=== PATIENT | male | born 1970 | race African-American/Black ===

== ENCOUNTER 2017-06-10 12:43 | Inpatient (IN) | payer OTHER ==
[~2017-06-10] VITALS: Ht 180.3 cm; Wt 127.0 kg
[~2017-06-10 12:43] MED LIST: LORTA5 PO; VIBR100C PO
[2017-06-10 12:53] VITALS: BP 139/101; TEMP 97.9; O2SAT 96
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
[2017-06-10 13:19] VITALS: RESP 18; O2SAT 99
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
[2017-06-10 14:25] LABS: BASOPHIL % 0.7 % (0.0-2.0); EOSINOPHIL % 0.1 % (0.0-4.0); HEMATOCRIT 49.1 % (39.0-51.0); HEMOGLOBIN 16.9 GM/DL (13.0-17.0); LYMPH % 13.3 % (9.0-44.0); MEAN CELL VOLUME 87.7 FL (80.0-100.0); MEAN CORPUSCULAR HEMOGLOBIN 30.1 PG (27.0-34.0); MEAN CORPUSCULAR HGB CONC 34.3 % (32.0-36.0); MONOCYTE # 0.5 TH/MM3 (0-0.9); NEUT % 79.9 % (16.0-70.0); PLATELET COUNT 193 TH/MM3 (150-450); RED CELL DISTRIBUTION WIDTH 15.2 % (11.6-17.2); WHITE BLOOD COUNT 7.5 TH/MM3 (4.0-11.0)
[2017-06-10 14:35] LABS: INTERNATIONAL NORMALIZED RATIO 1.1 RATIO; PROTHROMBIN TIME - PATIENT 11.4 SEC (9.8-11.6)
[2017-06-10 14:45] LABS: ALT (GPT) 30 U/L (12-78); AST (GOT) 32 U/L (15-37); BLOOD UREA NITROGEN 9 MG/DL (7-18); CALCIUM 8.7 MG/DL (8.5-10.1); CHLORIDE 104 MEQ/L (98-107); GLOMERULAR FILTRATION RATE 87 ML/MIN (>89); GLUCOSE,RANDOM 103 MG/DL (74-106); SODIUM (NA) 141 MEQ/L (136-145)
[2017-06-10 14:47] LABS: ALKALINE PHOSPHATASE 59 U/L (45-117); TOTAL BILIRUBIN ADULT 0.8 MG/DL (0.2-1.0); TOTAL PROTEIN 6.9 GM/DL (6.4-8.2)
[2017-06-10] MEDS ORDERED: SODIUM CHLOR 0.9% 1000 ML INJ 1,000 ML IV ONE (15:00)
[2017-06-10] MEDS ORDERED: ONDANSETRON HCL 4 MG/2 ML VIAL IV PUSH ONE (15:00)
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
[2017-06-10] MEDS ORDERED: IOHEXOL 350 MG/ML 10 ML VIAL (for RAD DIAG) IVCONTRAST ONE (15:18)
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
[2017-06-10 15:41] VITALS: BP 156/87; PULSE 113; RESP 18; O2SAT 94
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
[2017-06-10] MEDS ORDERED: MORPHINE SULFATE 2 MG/ML INJ IV PUSH ONE (16:00)
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
[2017-06-10] MEDS ORDERED: ONDANSETRON HCL 4 MG/2 ML VIAL IV PUSH PRN (16:45)
[2017-06-10] MEDS ORDERED: MISCELLANEOUS NURSING INFORMATION XX SCH (16:45)
[2017-06-10] MEDS ORDERED: CHLORHEXIDINE GLUCONATE 2 % 1 PACK (2 CLOTHS) TOP PRN (16:45)
[2017-06-10] MEDS: PCA - TOTAL MG DILAUDID DELIVERED PER SHIFT OTHER SCH ×2 (16:45→19:40)
[2017-06-10] MEDS ORDERED: NALOXONE HCL 0.4 MG/ML AMP IV PUSH PRN (16:45)
[2017-06-10] MEDS: ACETAMINOPHEN 1000 MG/100 ML 100 ML IV SCH (17:36)
[2017-06-10] MEDS: LACTATED RINGER'S 1000 ML INJ 1,000 ML IV SCH (17:38)
[2017-06-10] MEDS: GABAPENTIN 100 MG CAP PO SCH (17:39)
--- NOTE | 2017-06-10 18:27 | RADRPT ---
EXAM DATE/TIME: 06/10/2017 17:56 [facility] COMPARISON: No previous studies available for comparison. INDICATIONS : Evaluate left knee fracture. RADIATION DOSE: 14.03 CTDIvol (mGy) MEDICAL HISTORY : None SURGICAL HISTORY : None. ENCOUNTER: Initial ACUITY: 1 day PAIN SCALE: 10/10 LOCATION: Left knee TECHNIQUE: Volumetric scanning of the knee was performed. Using automated exposure control and adjustment of th e mA and/or kV according to patient size, radiation dose was kept as low as reasonably achievable to obtain optimal diagnostic quality images. DICOM format image data is available electronically for re view and comparison. FINDINGS: An exceedingly comminuted diepunch type fracture involves the lateral tibial plateau with marked depr ession and posterior downsloping of the central diepunch fracture fragment. Comminuted but minimally displaced fracturing is seen at the tibial eminence and the far lateral weig htbearing surface of the medial tibial plateau. There is an approximately 1 cm fracture fragment in t he posterior notch. Large lipohemarthrosis. [place] and distal femur are intact. CONCLUSION: 1. Markedly comminuted as well as markedly depressed/posterior downsloping diepunch type fracture of the lateral tibial plateau. 2. Comminuted by less displaced fracturing of the tibial eminence and the far lateral weightbearing s urface of the medial tibial plateau. 3. 1 cm fracture fragment in the posterior notch region. Blanco Cantrell MD on June 10, 2017 at 18:22 Board Certified Radiologist. This report was verified electronically.
[2017-06-10 18:30] VITALS: BP 150/85; PULSE 99; RESP 17; TEMP 99.3; O2SAT 95
[2017-06-10] MEDS: FAMOTIDINE 20 MG/2 ML VIAL IV PUSH SCH (19:39)
[2017-06-10] MEDS: BACITRACIN TOP OINT 15 GM TUBE TOPICAL SCH (19:40)
[2017-06-10] MEDS: MAGNESIUM HYDROXIDE SUSP 30 ML CUP PO SCH (19:40)
[2017-06-10] MEDS: DOCUSATE SODIUM 50 MG/SENNA 8.6 MG TAB PO SCH (19:40)
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
[2017-06-10] MEDS: METHOCARBAMOL 500 MG TAB PO SCH (20:33)
[2017-06-10] MEDS: LIDOCAINE HCL 5% PATCH T-DERMAL SCH (20:37)
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
[2017-06-10] MEDS ORDERED: DOCUSATE SODIUM 100 MG CAP PO SCH (21:00)
[2017-06-10] MEDS ORDERED: ceFAZolin 2 GM PREMIX 50 ML IV SCH (21:00)
[2017-06-10] MEDS: HYDROmorphone HCL PCA 6 MG/30 ML IV SCH (21:13)
[2017-06-10] MEDS ORDERED: METOPROLOL TARTRATE 25 MG TAB PO PRN (22:30)
[2017-06-10] MEDS ORDERED: SODIUM CHLORID 0.9% 500 ML IV PRN (22:30)
[2017-06-10] MEDS ORDERED: CHLORHEXIDINE GLUCONATE 2 % 1 PACK (2 CLOTHS) TOPICAL PRN (22:30)
[2017-06-10] MEDS ORDERED: POVIDONE IODINE 5% (ANTISEPSIS KIT) 4 APPLICATIONS EACH NARE PRN (22:30)
[2017-06-10] MEDS ORDERED: LACTATED RINGER'S 1000 ML IV PRN (22:30)
[2017-06-10 23:15] VITALS: BP 138/72; PULSE 106; RESP 18; TEMP 99.4; O2SAT 93
[2017-06-11] MEDS: ACETAMINOPHEN 1000 MG/100 ML 100 ML IV SCH ×3 (00:07→12:00)
[2017-06-11] MEDS: CHLORHEXIDINE GLUCONATE 2 % 1 PACK (2 CLOTHS) TOP SCH ×2 (02:02→22:52)
[2017-06-11] MEDS: LACTATED RINGER'S 1000 ML INJ 1,000 ML IV SCH ×3 (02:02→22:51)
[2017-06-11 03:25] VITALS: BP 119/77; PULSE 88; RESP 19; TEMP 98.9; O2SAT 94
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
[2017-06-11] MEDS: METHOCARBAMOL 500 MG TAB PO SCH ×3 (05:43→20:57)
[2017-06-11] MEDS: PCA - TOTAL MG DILAUDID DELIVERED PER SHIFT OTHER SCH ×3 (05:47→22:00)
[2017-06-11 06:56] LABS: AUTOMATED NEUTROPHIL # 5.6 TH/MM3 (1.8-7.7); BASOPHIL % 0.3 % (0.0-2.0); EOSINOPHIL % 0.1 % (0.0-4.0); HEMATOCRIT 49.4 % (39.0-51.0); HEMOGLOBIN 16.3 GM/DL (13.0-17.0); LYMPH % 12.7 % (9.0-44.0); LYMPHOCYTE # 0.9 TH/MM3 (1.0-4.8); MEAN CELL VOLUME 88.3 FL (80.0-100.0); MEAN CORPUSCULAR HEMOGLOBIN 29.2 PG (27.0-34.0); MEAN CORPUSCULAR HGB CONC 33.1 % (32.0-36.0); MEAN PLATELET VOLUME 8.9 FL (7.0-11.0); MONO % 7.9 % (0.0-8.0); MONOCYTE # 0.6 TH/MM3 (0-0.9); PLATELET COUNT 170 TH/MM3 (150-450); RED BLOOD COUNT 5.59 MIL/MM3 (4.50-5.90); RED CELL DISTRIBUTION WIDTH 15.6 % (11.6-17.2); WHITE BLOOD COUNT 7.1 TH/MM3 (4.0-11.0)
[2017-06-11 07:09] LABS: BICARBONATE 29.3 MEQ/L (21.0-32.0); CALCIUM 8.4 MG/DL (8.5-10.1); CREATININE 0.99 MG/DL (0.60-1.30)
[2017-06-11] MEDS ORDERED: GENTAMICIN SULFATE 80 MG/2 ML VIAL ONE (08:41)
[2017-06-11] MEDS: DOCUSATE SODIUM 50 MG/SENNA 8.6 MG TAB PO SCH ×3 (08:46→20:58)
[2017-06-11] MEDS: MAGNESIUM HYDROXIDE SUSP 30 ML CUP PO SCH ×2 (08:46→20:57)
[2017-06-11] MEDS: GABAPENTIN 100 MG CAP PO SCH ×3 (08:46→15:52)
[2017-06-11] MEDS: LIDOCAINE HCL 5% PATCH T-DERMAL SCH (08:51)
[2017-06-11] MEDS: BACITRACIN TOP OINT 15 GM TUBE TOPICAL SCH ×2 (09:00→21:00)
[2017-06-11] MEDS: FAMOTIDINE 20 MG/2 ML VIAL IV PUSH SCH ×2 (09:00→20:57)
[2017-06-11] MEDS ORDERED: fentaNYL CITRATE 250 MCG/5 ML AMP ONE (09:32)
[2017-06-11] MEDS ORDERED: ACETAMINOPHEN 1000 MG/100 ML 100 ML IV ONE (09:32)
[2017-06-11] MEDS ORDERED: ceFAZolin INJ 1,000 MG VIAL IV ONE ×2 (11:37→12:00)
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
[2017-06-11] MEDS ORDERED: ONDANSETRON HCL 4 MG/2 ML VIAL IV ONE (12:00)
[2017-06-11] MEDS ORDERED: LACTATED RINGER'S 1000 ML INJ 1,000 ML IV ONE (12:00)
[2017-06-11] MEDS ORDERED: ROCURONIUM INJ 50 MG/5 ML SYRINGE IV PUSH ONE (12:00)
[2017-06-11] MEDS ORDERED: NEOSTIGMINE 5 MG/5 ML SYRINGE IV PUSH ONE (12:00)
[2017-06-11] MEDS ORDERED: GLYCOPYRROLATE 1 MG/5 ML SYRINGE IV PUSH ONE (12:00)
[2017-06-11] MEDS ORDERED: ePHEDrine/NS 25 MG/5 ML SYRINGE IV ONE (12:00)
[2017-06-11] MEDS ORDERED: PHENYLEPH/NS 1000 MCG/10 ML SYR IV ONE (12:00)
[2017-06-11] MEDS ORDERED: LIDOCAINE HCL 1% PF 5 ML SYRINGE OTHER ONE (12:00)
[2017-06-11] MEDS ORDERED: DEXAMETHASONE SOD PHOS 4 MG/ML VIAL IV ONE (12:00)
[2017-06-11] MEDS ORDERED: PROPOFOL 200 MG/20 ML AMP IV ONE (12:00)
--- NOTE | 2017-06-11 12:46 | RADRPT ---
EXAM DATE/TIME: 06/11/2017 12:30 [facility] COMPARISON: CHEST SINGLE AP, June 11, 2017, 4:41. INDICATIONS : Left tibia open reduction internal fixation. MEDICAL HISTORY : None. SURGICAL HISTORY : None. ENCOUNTER: Initial ACUITY: 1 day PAIN SCORE: Non-responsive. LOCATION: Left tibia FINDINGS: There has been plating of the patient's tibial plateau fracture. The alignment of the fracture post p lating is excellent. The hardware is well-positioned. CONCLUSION: Good alignment of the patient's tibial plateau fracture post plating. Rubén Soto MD on June 11, 2017 at 12:44 Board Certified Radiologist. This report was verified electronically.
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
[2017-06-11] MEDS ORDERED: ONDANSETRON HCL 4 MG/2 ML VIAL IVP PRN (13:15)
[2017-06-11] MEDS ORDERED: Post-op Orders (for Pharmacy) XX ONE (13:15)
[2017-06-11] MEDS ORDERED: LACTULOSE SYRUP 20 GM/30 ML CUP PO PRN (13:15)
[2017-06-11] MEDS ORDERED: MORPHINE SULFATE 4 MG/ML INJ IV PUSH PRN (13:15)
[2017-06-11] MEDS ORDERED: ACETAMINOPHEN 325 MG TAB PO PRN (13:15)
[2017-06-11] MEDS ORDERED: POVIDONE IODINE 10% SOLN 118 ML BOTTLE TOPICAL PRN (13:15)
[2017-06-11] MEDS ORDERED: ALUMINUM/MAGNESIUM/SIMETH 30 ML CUP PO PRN (13:15)
[2017-06-11] MEDS ORDERED: SENNOSIDES 8.6 MG TAB PO PRN (13:15)
[2017-06-11] MEDS ORDERED: MAGNESIUM HYDROXIDE SUSP 30 ML CUP PO PRN (13:15)
[2017-06-11] MEDS ORDERED: BISACODYL 10 MG SUPP RECTAL PRN (13:15)
[2017-06-11] MEDS ORDERED: *RESP: ALBUTEROL 2.5 MG/3 ML NEB (PRN) PERIprocedural Use ONLY NEB ONE (13:19)
[2017-06-11] MEDS ORDERED: DO NOT ADM ANY ANTICOAGULANT DRUGS PRN (13:30)
--- NOTE | 2017-06-11 13:30 | PD.ORT.PN ---
Subjective Post Op Day #: 0 Subjective Remarks POD #0 Open reduction internal fixation left tibial plateau fracture Pt in recovery area. Objective Vitals Vital Signs Date Time Temp Pulse Resp B/P (MAP) Pulse Ox O2 Delivery O2 Flow Rate FiO2 06/11/17 05:47 16 06/11/17 03:25 98.9 88 19 119/77 (91) 94 06/10/17 23:15 99.4 106 18 138/72 (94) 93 06/10/17 21:13 18 06/10/17 18:35 06/10/17 18:30 99.3 99 17 150/85 (106) 95 06/10/17 15:41 113 18 156/87 (110) 94 Room Air I/O 06/10/17 06/10/17 06/10/17 06/11/17 06/11/17 06/11/17 07:00 15:00 23:00 07:00 15:00 23:00 Intake Total 120 ml 1700 ml Output Total 300 ml 1150 ml Balance -180 ml 550 ml Intake Oral 120 ml IV Total 1700 ml Output Urine Total 300 ml Estimated Blood Loss 150 ml Other 1000 ml # Bowel Movements 0 Result Diagram: 06/11/17 0543 06/11/17 0543 Other Results Laboratory Tests Test 06/10/17 14:02 Prothromb Time International Ratio 1.1 RATIO Prothrombin Time 11.4 SEC (9.8-11.6) Imaging Last 24 hours Impressions Tibia/Fibula X-Ray 06/11/17 0000 Signed Impressions: Service Date/Time: Sunday, June 11, 2017 12:30 - CONCLUSION: Good alignment of the patient's tibial plateau fracture post plating. Rubén Stoo MD Chest X-Ray 06/11/17 0000 Signed Impressions: Service Date/Time: Sunday, June 11, 2017 04:41 - CONCLUSION: No acute cardiopulmonary process except for some minimal left basilar atelectatic changes. Dennys Rosales MD Procedures 06/11/17 Open reduction internal fixation left tibial plateau fracture, Dr Breaux Objective Remarks LLE: Dressing dry and intact. Brace in place. Cryotherapy cuff in place.Tender to palpation with mild swelling around incision site. Range of motion not tested. Freely able to move distal digits. No calf pain. Negative Julius's sign. Good cap refill. 2+ pedal pulses. Neurovascular intact. Assessment & Plan Ortho Post Op Day #: 0 Problem List: (1) Tibial plateau fracture, left ICD Codes: S82.142A - Displaced bicondylar fracture of left tibia, initial encounter for closed fracture (2) Rib fractures ICD Codes: S22.39XA - Fracture of one rib, unspecified side, initial encounter for closed fracture Status: Acute Qualifiers: Qualified Codes: S22.42XA - Multiple fractures of ribs, left side, initial encounter for closed fracture (3) Hemothorax on left ICD Codes: J94.2 - Hemothorax Status: Acute Assessment and Plan POD #0 Open reduction internal fixation left tibial plateau fracture Progress rehab, toe touch w/b CKS on at all times. Cryotherapy Lovenox for DVT prophylaxis, ok to transition to ASA 81mg BID x 20 days when discharged home. Start daily dressing changes POD #2 Discharge planning. Possible discharge to home tomorrow from an orthopedic standpoint. F/U [address] Namita Frey,Leyla HILLIARD Jun 11, 2017 13:30
[2017-06-11] MEDS: HYDROmorphone HCL PCA 6 MG/30 ML IV SCH (13:44)
[2017-06-11] MEDS ORDERED: IBUP-232 PO (15:22)
[2017-06-11] MEDS ORDERED: METH500T3 PO (15:22)
[2017-06-11] MEDS ORDERED: SENN187 PO (15:22)
[2017-06-11] MEDS ORDERED: ASPI-183 PO (15:22)
[2017-06-11] MEDS ORDERED: MAGN30S PO (15:22)
[2017-06-11] MEDS ORDERED: LIDO1ADH4 T-DERMAL (15:22)
[2017-06-11] MEDS: ceFAZolin 2 GM PREMIX 50 ML IV SCH ×2 (15:51→22:50)
[2017-06-11 15:57] VITALS: BP 113/55; PULSE 96; RESP 17; TEMP 97.7; O2SAT 96
--- NOTE | 2017-06-11 17:51 | EKG ---
Date Performed: 06/11/2017 Time Performed: 07:38:14 PTAGE: 46 years EKG: Sinus rhythm PVC ABNORMAL ECG Compared to PREVIOUS TRACING , the PVC is new otherwise no change. PREVIOUS TRACIN11/18/2004 17.16 DOCTOR: Jim Clark Interpretating Date/Time 06/11/2017 17:50:44
[2017-06-11 20:20] VITALS: BP 135/86; PULSE 115; RESP 18; TEMP 97; O2SAT 93
[2017-06-11] MEDS: oxyCODONE/ACETAMINOPHEN 5 MG/325 MG TAB PO PRN (20:56)
[2017-06-11] MEDS: SODIUM CHLORIDE 0.9% FLUSH 10 ML FLUSH IV FLUSH SCH (20:58)
[2017-06-12] VITALS (7 sets, daily range): BP systolic 133–147; BP diastolic 78–97; PULSE 108–116; RESP 18–21; TEMP 97.5–99.5; O2SAT 88–97
[2017-06-12] MEDS: LACTATED RINGER'S 1000 ML INJ 1,000 ML IV SCH ×2 (00:25→08:46)
[2017-06-12] MEDS: PCA - TOTAL MG DILAUDID DELIVERED PER SHIFT OTHER SCH ×2 (04:53→12:15)
[2017-06-12] MEDS: ceFAZolin 2 GM PREMIX 50 ML IV SCH (04:53)
[2017-06-12] MEDS: METHOCARBAMOL 500 MG TAB PO SCH ×3 (04:54→21:58)
[2017-06-12] MEDS: HYDROmorphone HCL PCA 6 MG/30 ML IV SCH (05:01)
[2017-06-12 05:10] LABS: AUTOMATED NEUTROPHIL # 7.7 TH/MM3 (1.8-7.7); BASOPHIL % 0.1 % (0.0-2.0); HEMATOCRIT 47.8 % (39.0-51.0); HEMOGLOBIN 15.8 GM/DL (13.0-17.0); LYMPH % 8.4 % (9.0-44.0); LYMPHOCYTE # 0.8 TH/MM3 (1.0-4.8); MEAN CELL VOLUME 88.8 FL (80.0-100.0); MEAN CORPUSCULAR HEMOGLOBIN 29.3 PG (27.0-34.0); MEAN PLATELET VOLUME 8.9 FL (7.0-11.0); MONO % 8.6 % (0.0-8.0); MONOCYTE # 0.8 TH/MM3 (0-0.9); NEUT % 82.9 % (16.0-70.0); PLATELET COUNT 165 TH/MM3 (150-450); RED BLOOD COUNT 5.39 MIL/MM3 (4.50-5.90); WHITE BLOOD COUNT 9.3 TH/MM3 (4.0-11.0)
[2017-06-12 05:25] LABS: BICARBONATE 30.9 MEQ/L (21.0-32.0); CALCIUM 8.1 MG/DL (8.5-10.1); CREATININE 0.96 MG/DL (0.60-1.30)
--- NOTE | 2017-06-12 05:49 | RADRPT ---
EXAM DATE/TIME: 06/12/2017 04:37 [facility] COMPARISON: CHEST SINGLE AP, June 11, 2017, 4:41. INDICATIONS : Short of breath. MEDICAL HISTORY : None. SURGICAL HISTORY : None. ENCOUNTER: Initial ACUITY: 1 day PAIN SCORE: Non-responsive. LOCATION: Bilateral chest FINDINGS: A single view of the chest demonstrates worsening left basilar atelectatic changes. Right lung remain s clear. Heart size is normal. Osseous structures are intact. CONCLUSION: Worsening left basilar atelectasis/consolidation. Dennys Rosales MD on June 12, 2017 at 5:47 Board Certified Radiologist. This report was verified electronically.
--- NOTE | 2017-06-12 08:39 | PD.ORT.PN ---
Subjective Subjective Remarks pt states his left hip is doing fine, minimal pain does have quite significant pain due to his rib fracture Objective Vitals Vital Signs Date Time Temp Pulse Resp B/P (MAP) Pulse Ox O2 Delivery O2 Flow Rate FiO2 06/12/17 05:01 18 06/12/17 04:53 18 06/12/17 04:25 99.5 111 20 136/89 (105) 97 06/12/17 00:20 98.2 108 19 140/86 (104) 97 06/11/17 22:00 16 06/11/17 20:20 97.0 115 18 135/86 (102) 93 06/11/17 15:57 97.7 96 17 113/55 (74) 96 06/11/17 13:50 99.1 99 20 103/58 (73) 94 Nasal Cannula 3 06/11/17 13:44 20 06/11/17 13:30 92 20 102/59 (73) 92 Nasal Cannula 3 06/11/17 13:11 99.1 100 20 103/55 (71) 95 Nasal Cannula 3 I/O 06/11/17 06/11/17 06/11/17 06/12/17 06/12/17 06/12/17 07:00 15:00 23:00 07:00 15:00 23:00 Intake Total 120 ml 2180 ml 360 ml Output Total 300 ml 1600 ml 450 ml Balance -180 ml 580 ml -450 ml 360 ml Intake Oral 120 ml 480 ml 360 ml IV Total 1700 ml Output Urine Total 300 ml 450 ml 450 ml Estimated Blood Loss 150 ml Other 1000 ml # Voids 2 # Bowel Movements 0 0 0 Result Diagram: 06/12/17 0407 06/12/17 0407 Imaging Last 24 hours Impressions Tibia/Fibula X-Ray 06/11/17 0000 Signed Impressions: Service Date/Time: Sunday, June 11, 2017 12:30 - CONCLUSION: Good alignment of the patient's tibial plateau fracture post plating. Rubén Soto MD Chest X-Ray 06/11/17 0000 Signed Impressions: Service Date/Time: Sunday, June 11, 2017 04:41 - CONCLUSION: No acute cardiopulmonary process except for some minimal left basilar atelectatic changes. Dennys Rosales MD Procedures 06/11/17 Open reduction internal fixation left tibial plateau fracture, Dr Breaux Objective Remarks also seen and examined by Dr. Sage Calhoun LLE: Dressing dry and intact. Brace in place. Tender to palpation with mild swelling around incision site. Range of motion not tested. Freely able to move distal digits. No calf pain. Negative Julius's sign. Good cap refill. 2+ pedal pulses. Neurovascular intact. Assessment & Plan Problem List: (1) Tibial plateau fracture, left ICD Codes: S82.142A - Displaced bicondylar fracture of left tibia, initial encounter for closed fracture (2) Rib fractures ICD Codes: S22.39XA - Fracture of one rib, unspecified side, initial encounter for closed fracture Status: Acute Qualifiers: Qualified Codes: S22.42XA - Multiple fractures of ribs, left side, initial encounter for closed fracture (3) Hemothorax on left ICD Codes: J94.2 - Hemothorax Status: Acute Assessment and Plan POD #1 Open reduction internal fixation left tibial plateau fracture Progress rehab, toe touch w/b CKS on at all times. Cryotherapy Lovenox for DVT prophylaxis, ok to transition to ASA 81mg BID x 20 days when discharged home. Start daily dressing changes POD #2 Discharge planning. Possible discharge Tuesday if pain better controlled F/U 1 week with Shabnam Nogueira Jun 12, 2017 08:39
[2017-06-12] MEDS: FAMOTIDINE 20 MG TAB PO SCH ×2 (08:47→21:58)
[2017-06-12] MEDS: LIDOCAINE HCL 5% PATCH T-DERMAL SCH (08:47)
[2017-06-12] MEDS: oxyCODONE/ACETAMINOPHEN 5 MG/325 MG TAB PO PRN ×4 (08:47→21:58)
[2017-06-12] MEDS: GABAPENTIN 100 MG CAP PO SCH ×3 (08:47→17:15)
[2017-06-12] MEDS: SODIUM CHLORIDE 0.9% FLUSH 10 ML FLUSH IV FLUSH SCH ×2 (08:48→21:59)
[2017-06-12] MEDS: MAGNESIUM HYDROXIDE SUSP 30 ML CUP PO SCH ×2 (08:48→21:57)
[2017-06-12] MEDS: DOCUSATE SODIUM 50 MG/SENNA 8.6 MG TAB PO SCH ×2 (08:48→21:58)
[2017-06-12] MEDS: BACITRACIN TOP OINT 15 GM TUBE TOPICAL SCH ×2 (08:56→21:00)
[2017-06-12] MEDS: ENOXAPARIN SODIUM 40 MG/0.4 ML SYRINGE SQ SCH (12:14)
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
[2017-06-12] MEDS ORDERED: HYDROmorphone HCL PF 2 MG/ML VIAL IV PUSH PRN (12:30)
[2017-06-12] MEDS ORDERED: RESP: ALBUTEROL 2.5 MG/IPRATROPIUM 0.5 MG NEB (PRN) NEB (14:45)
[2017-06-12] MEDS: RESP: ALBUTEROL 2.5 MG/IPRATROPIUM 0.5 MG NEB (SCH) NEB ×2 (15:25→21:09)
[2017-06-12] MEDS: KETOROLAC TROMETHAMINE 30 MG/ML (IVP) VIAL IV PUSH SCH (17:15)
[2017-06-12] MEDS: fentaNYL 75 MCG/HR PATCH T-DERMAL SCH (17:16)
[2017-06-13] VITALS (9 sets, daily range): BP systolic 121–146; BP diastolic 63–94; PULSE 102–110; RESP 18–19; TEMP 97.2–99.3; O2SAT 92–96
[2017-06-13] MEDS: KETOROLAC TROMETHAMINE 30 MG/ML (IVP) VIAL IV PUSH SCH ×4 (01:51→18:00)
[2017-06-13] MEDS: RESP: ALBUTEROL 2.5 MG/IPRATROPIUM 0.5 MG NEB (SCH) NEB ×4 (04:19→21:19)
[2017-06-13] MEDS: METHOCARBAMOL 500 MG TAB PO SCH ×3 (05:35→21:56)
[2017-06-13] MEDS: oxyCODONE/ACETAMINOPHEN 5 MG/325 MG TAB PO PRN ×5 (05:35→23:50)
--- NOTE | 2017-06-13 06:42 | RADRPT ---
EXAM DATE/TIME: 06/13/2017 05:16 [facility] COMPARISON: CHEST SINGLE AP, June 12, 2017, 4:37. INDICATIONS : Pain left chest and ribs, coughing MEDICAL HISTORY : rib fractures, hemothorax SURGICAL HISTORY : None. ENCOUNTER: Subsequent ACUITY: 2 days PAIN SCORE: 10/10 LOCATION: Bilateral chest FINDINGS: There is a lesser degree of inspiration than on prior. There is persistent consolidation with air br onchograms in the left lower lung with loss of delineation of the entire left hemidiaphragm. No infi ltrate seen on the right side. Heart size is normal taking into consideration the submaximal inspira tion. CONCLUSION: Persistent left lower lung consolidation. Moreno Rivas MD on June 13, 2017 at 6:40 Board Certified Radiologist. This report was verified electronically.
--- NOTE | 2017-06-13 06:43 | PD.ORT.PN ---
Subjective Post Op Day #: 2 Pain Scale: 4 Subjective Remarks Postoperative day 2 ORIF left Tibial plateau. The patient is awake alert and answers questions appropriately. His pain is well-controlled. He was out of bed to a chair yesterday. He has no other specific complaint. Objective Vitals Vital Signs Date Time Temp Pulse Resp B/P (MAP) Pulse Ox O2 Delivery O2 Flow Rate FiO2 06/13/17 04:19 93 Nasal Cannula 4.00 06/13/17 04:10 97.2 102 18 141/63 (89) 93 06/13/17 00:25 97.3 102 18 121/79 (93) 92 06/12/17 20:25 97.5 110 18 134/78 (96) 94 06/12/17 16:00 97.8 116 21 142/92 (109) 90 06/12/17 12:15 19 06/12/17 12:00 97.8 116 20 133/97 (109) 95 06/12/17 09:40 88 06/12/17 08:00 99.1 110 18 147/87 (107) 94 I/O 06/12/17 06/12/17 06/12/17 06/13/17 06/13/17 06/13/17 07:00 15:00 23:00 07:00 15:00 23:00 Intake Total 360 ml 720 ml 240 ml Balance 360 ml 720 ml 240 ml Intake Oral 360 ml 720 ml 240 ml # Voids 2 5 2 # Bowel Movements 0 0 0 Result Diagram: 06/12/17 0407 06/12/17 0407 Imaging Last 24 hours Impressions Tibia/Fibula X-Ray 06/11/17 0000 Signed Impressions: Service Date/Time: Sunday, June 11, 2017 12:30 - CONCLUSION: Good alignment of the patient's tibial plateau fracture post plating. Rubén Soto MD Chest X-Ray 06/11/17 0000 Signed Impressions: Service Date/Time: Sunday, June 11, 2017 04:41 - CONCLUSION: No acute cardiopulmonary process except for some minimal left basilar atelectatic changes. Dennys Rosales MD Procedures 06/11/17 Open reduction internal fixation left tibial plateau fracture, Dr Breaux Objective Remarks LLE: Dressing dry and intact. Brace in place. Tender to palpation with mild swelling around incision site. Range of motion not tested. Freely able to move distal digits. No calf pain. Negative Julius's sign. Good cap refill. 2+ pedal pulses. Neurovascular intact. Assessment & Plan Ortho Post Op Day #: 2 Problem List: (1) Tibial plateau fracture, left ICD Codes: S82.142A - Displaced bicondylar fracture of left tibia, initial encounter for closed fracture Qualifiers: Qualified Codes: S82.142A - Displaced bicondylar fracture of left tibia, initial encounter for closed fracture (2) Rib fractures ICD Codes: S22.39XA - Fracture of one rib, unspecified side, initial encounter for closed fracture Status: Acute Qualifiers: Qualified Codes: S22.42XA - Multiple fractures of ribs, left side, initial encounter for closed fracture (3) Hemothorax on left ICD Codes: J94.2 - Hemothorax Status: Acute Assessment and Plan POD #2 Open reduction internal fixation left tibial plateau fracture Progress rehab, toe touch w/b CKS on at all times. Cryotherapy Lovenox for DVT prophylaxis, ok to transition to ASA 81mg BID x 20 days when discharged home. Start daily dressing changes today Discharge planning. Stable for discharge home from an orthopedic standpoint F/U Tuesday Jim Breaux MD Jun 13, 2017 06:43
[2017-06-13] MEDS ORDERED: OXYC1TAB63 PO (06:48)
[2017-06-13] MEDS ORDERED: FENT75T T-DERMAL (06:48)
[2017-06-13] MEDS ORDERED: BEDSIDE COMMODE1 MI1 (07:05)
[2017-06-13] MEDS ORDERED: WALKER WHEELS/F1 MIS (07:05)
[2017-06-13] MEDS ORDERED: WHEEMIS3 (07:05)
[2017-06-13] MEDS: LACTULOSE SYRUP 20 GM/30 ML CUP PO SCH (09:00)
--- NOTE | 2017-06-13 09:38 | RADRPT ---
EXAM DATE/TIME: 06/13/2017 09:14 [facility] COMPARISON: CT THORAX W CONTRAST, June 10, 2017, 15:05. INDICATIONS : Evaluate worsening left lower lung consolidation RADIATION DOSE: 19.92 CTDIvol (mGy) MEDICAL HISTORY : Hypertension. SURGICAL HISTORY : None. ENCOUNTER: Initial ACUITY: 1 day PAIN SCALE: 5/10 LOCATION: Left chest TECHNIQUE: Volumetric scanning of the chest was performed. Using automated exposure control and adjustment of t he mA and/or kV according to patient size, radiation dose was kept as low as reasonably achievable to obtain optimal diagnostic quality images. DICOM format image data is available electronically for r eview and comparison. Follow-up recommendations for detected pulmonary nodules are based at a minimum on nodule size and pa tient risk factors according to Fleischner Society Guidelines. FINDINGS: LUNGS: Moderate consolidative changes left lower lobe with air bronchograms and trace pleural effusion. Tra ce pneumothorax is evident. The right lung is clear. MEDIASTINUM: The heart and great vessels demonstrate no acute abnormality. There is no mediastinal or hilar lymph adenopathy. AXILLAE: Within normal limits. No lymphadenopathy. MUSCULOSKELETAL: Fractures of the second, third, fourth fifth sixth and seventh ribs are seen on the left. There no r ib fractures on the right Degenerative changes are present in the thoracic spine Sternum is intact. MISCELLANEOUS: The visualized upper abdominal organs demonstrate no acute abnormality. CONCLUSION: Consolidative changes left lower lobe with air bronchograms and trace pleural effusion Trace left pneumothorax Multiple left rib fractures. Findings have progressed from 06/10/17. Lambert Soto MD FACR on June 13, 2017 at 9:32 Board Certified Radiologist. This report was verified electronically.
[2017-06-13] MEDS: BACITRACIN TOP OINT 15 GM TUBE TOPICAL SCH ×2 (10:04→21:57)
[2017-06-13] MEDS: DOCUSATE SODIUM 50 MG/SENNA 8.6 MG TAB PO SCH ×2 (10:04→21:56)
[2017-06-13] MEDS: GABAPENTIN 100 MG CAP PO SCH ×3 (10:05→18:13)
[2017-06-13] MEDS: FAMOTIDINE 20 MG TAB PO SCH ×2 (10:05→21:56)
[2017-06-13] MEDS: MAGNESIUM HYDROXIDE SUSP 30 ML CUP PO SCH ×2 (10:05→21:56)
[2017-06-13] MEDS: SODIUM CHLORIDE 0.9% FLUSH 10 ML FLUSH IV FLUSH SCH ×2 (10:07→21:56)
[2017-06-13] MEDS: LIDOCAINE HCL 5% PATCH T-DERMAL SCH (10:07)
[2017-06-13] MEDS: ENOXAPARIN SODIUM 40 MG/0.4 ML SYRINGE SQ SCH (11:51)
[2017-06-13] MEDS: SODIUM CHLORIDE 0.9% FLUSH 10 ML FLUSH IV FLUSH PRN (11:53)
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
[2017-06-14] VITALS (7 sets, daily range): BP systolic 117–136; BP diastolic 70–90; PULSE 90–101; RESP 18–19; TEMP 97.5–98.8; O2SAT 94–100
[2017-06-14] MEDS: RESP: ALBUTEROL 2.5 MG/IPRATROPIUM 0.5 MG NEB (SCH) NEB ×4 (03:27→21:03)
[2017-06-14 04:16] LABS: AUTOMATED NEUTROPHIL # 5.2 TH/MM3 (1.8-7.7); BASOPHIL % 0.5 % (0.0-2.0); EOSINOPHIL % 0.5 % (0.0-4.0); HEMATOCRIT 45.9 % (39.0-51.0); LYMPH % 13.7 % (9.0-44.0); LYMPHOCYTE # 0.9 TH/MM3 (1.0-4.8); MEAN CELL VOLUME 88.4 FL (80.0-100.0); MEAN CORPUSCULAR HEMOGLOBIN 28.9 PG (27.0-34.0); MEAN CORPUSCULAR HGB CONC 32.6 % (32.0-36.0); MEAN PLATELET VOLUME 8.8 FL (7.0-11.0); MONOCYTE # 0.6 TH/MM3 (0-0.9); NEUT % 76.3 % (16.0-70.0); PLATELET COUNT 186 TH/MM3 (150-450); RED BLOOD COUNT 5.19 MIL/MM3 (4.50-5.90); RED CELL DISTRIBUTION WIDTH 15.2 % (11.6-17.2); WHITE BLOOD COUNT 6.9 TH/MM3 (4.0-11.0)
[2017-06-14 04:37] LABS: BICARBONATE 33.8 MEQ/L (21.0-32.0); CALCIUM 8.7 MG/DL (8.5-10.1); CREATININE 0.94 MG/DL (0.60-1.30)
[2017-06-14] MEDS: METHOCARBAMOL 500 MG TAB PO SCH ×3 (06:02→12:53)
[2017-06-14] MEDS: SODIUM CHLORIDE 0.9% FLUSH 10 ML FLUSH IV FLUSH PRN (06:16)
[2017-06-14] MEDS: KETOROLAC TROMETHAMINE 30 MG/ML (IVP) VIAL IV PUSH SCH ×4 (06:16→17:38)
--- NOTE | 2017-06-14 07:13 | RADRPT ---
EXAM DATE/TIME: 06/14/2017 05:31 [facility] COMPARISON: CHEST SINGLE AP, June 13, 2017, 5:16. INDICATIONS : Pain left chest and ribs, coughing MEDICAL HISTORY : rib fractures, hemothorax SURGICAL HISTORY : None. ENCOUNTER: Subsequent ACUITY: 3 days PAIN SCORE: 7/10 LOCATION: Bilateral chest FINDINGS: The heart is enlarged. Left pulmonary infiltrate is noted consistent with possible pneumonia. The rig ht lung is clear. CONCLUSION: 1. Left pulmonary infiltrate consistent with possible pneumonia. Clinical correlation is recommended. 2. Cardiomegaly. John Burnette MD on June 14, 2017 at 7:11 Board Certified Radiologist. This report was verified electronically.
[2017-06-14] MEDS ORDERED: BISACODYL 10 MG SUPP RECTAL ONE (07:15)
[2017-06-14] MEDS ORDERED: BISACODYL EC 5 MG TABEC PO ONE (07:15)
--- NOTE | 2017-06-14 07:50 | PD.ORT.PN ---
Subjective Subjective Remarks POD #3 Open reduction internal fixation left tibial plateau fracture Pt is laying in bed, admits his pain is well controlled. He's trying to decide between HHC vs rehab. Admits he lives at home with his and children. Objective Vitals Vital Signs Date Time Temp Pulse Resp B/P (MAP) Pulse Ox O2 Delivery O2 Flow Rate FiO2 06/14/17 00:30 94 Nasal Cannula 06/13/17 23:15 98.4 104 19 128/75 (92) 94 06/13/17 20:10 97.5 106 19 141/77 (98) 96 06/13/17 16:00 98.3 110 18 146/94 (111) 95 06/13/17 11:57 99.3 110 18 122/91 (101) 93 06/13/17 11:14 96 Nasal Cannula 2.00 I/O 06/13/17 06/13/17 06/13/17 06/14/17 06/14/17 06/14/17 07:00 15:00 23:00 07:00 15:00 23:00 Intake Total 240 ml 960 ml 720 ml Balance 240 ml 960 ml 720 ml Intake Oral 240 ml 960 ml 720 ml # Voids 2 3 3 # Bowel Movements 0 0 0 Result Diagram: 06/14/17 0347 06/14/17 0347 Imaging Last 24 hours Impressions Tibia/Fibula X-Ray 06/11/17 0000 Signed Impressions: Service Date/Time: Sunday, June 11, 2017 12:30 - CONCLUSION: Good alignment of the patient's tibial plateau fracture post plating. Rubén Soto MD Chest X-Ray 06/11/17 0000 Signed Impressions: Service Date/Time: Sunday, June 11, 2017 04:41 - CONCLUSION: No acute cardiopulmonary process except for some minimal left basilar atelectatic changes. Dennys Rosales MD Procedures 06/11/17 Open reduction internal fixation left tibial plateau fracture, Dr Breaux Objective Remarks LLE: Dressing dry and intact. Brace in place. Cryotherapy in place. Tender to palpation with mild swelling around incision site. Range of motion not tested. Freely able to move distal digits. No calf pain. Negative Julius's sign. Good cap refill. 2+ pedal pulses. Neurovascular intact. Assessment & Plan Problem List: (1) Tibial plateau fracture, left ICD Codes: S82.142A - Displaced bicondylar fracture of left tibia, initial encounter for closed fracture Qualifiers: Qualified Codes: S82.142A - Displaced bicondylar fracture of left tibia, initial encounter for closed fracture (2) Rib fractures ICD Codes: S22.39XA - Fracture of one rib, unspecified side, initial encounter for closed fracture Status: Acute Qualifiers: Qualified Codes: S22.42XA - Multiple fractures of ribs, left side, initial encounter for closed fracture (3) Hemothorax on left ICD Codes: J94.2 - Hemothorax Status: Acute Assessment and Plan POD #3 Open reduction internal fixation left tibial plateau fracture Progress rehab, toe touch w/b - work with PT to independently transfer/ambulate with walker to restroom. CKS on at all times. Cryotherapy Lovenox for DVT prophylaxis, ok to transition to ASA 81mg BID x 20 days when discharged home. Daily dressing changes today Clear for discharge from an orthopedic standpoint. I think pt would do ok with [facility] with the support from home. F/U Tuesday Leyla Frey Jun 14, 2017 07:50
[2017-06-14] MEDS: MAGNESIUM HYDROXIDE SUSP 30 ML CUP PO SCH ×2 (08:43→21:00)
[2017-06-14] MEDS: LACTULOSE SYRUP 20 GM/30 ML CUP PO SCH (08:43)
[2017-06-14] MEDS: GABAPENTIN 100 MG CAP PO SCH ×3 (08:43→17:38)
[2017-06-14] MEDS: FAMOTIDINE 20 MG TAB PO SCH ×2 (08:43→21:21)
[2017-06-14] MEDS: DOCUSATE SODIUM 50 MG/SENNA 8.6 MG TAB PO SCH ×2 (08:45→21:00)
[2017-06-14] MEDS: SODIUM CHLORIDE 0.9% FLUSH 10 ML FLUSH IV FLUSH SCH ×2 (08:47→21:00)
[2017-06-14] MEDS: LIDOCAINE HCL 5% PATCH T-DERMAL SCH (09:00)
[2017-06-14] MEDS: BACITRACIN TOP OINT 15 GM TUBE TOPICAL SCH ×2 (09:00→21:00)
[2017-06-14] MEDS: oxyCODONE/ACETAMINOPHEN 5 MG/325 MG TAB PO PRN ×4 (09:12→21:21)
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
[2017-06-14] MEDS: ENOXAPARIN SODIUM 40 MG/0.4 ML SYRINGE SQ SCH (12:53)
[2017-06-15] VITALS (7 sets, daily range): BP systolic 121–136; BP diastolic 62–90; PULSE 88–101; RESP 17–20; TEMP 97.6–98.4; O2SAT 93–99
[2017-06-15] MEDS: KETOROLAC TROMETHAMINE 30 MG/ML (IVP) VIAL IV PUSH SCH ×5 (00:37→23:45)
[2017-06-15] MEDS: oxyCODONE/ACETAMINOPHEN 5 MG/325 MG TAB PO PRN ×5 (02:22→21:37)
[2017-06-15] MEDS: RESP: ALBUTEROL 2.5 MG/IPRATROPIUM 0.5 MG NEB (SCH) NEB ×4 (04:08→22:22)
[2017-06-15] MEDS: METHOCARBAMOL 500 MG TAB PO SCH (06:00)
--- NOTE | 2017-06-15 06:10 | RADRPT ---
EXAM DATE/TIME: 06/15/2017 05:13 [facility] COMPARISON: CHEST SINGLE AP, June 14, 2017, 5:31. INDICATIONS : Short of breath. MEDICAL HISTORY : rib fractures, hemothorax SURGICAL HISTORY : None. ENCOUNTER: Subsequent ACUITY: 4 - 6 days PAIN SCORE: 0/10 LOCATION: Bilateral chest FINDINGS: Persisting consolidation in the left lower lung with loss of delineation of the left hemidiaphragm. The right lung is clear. The heart is stable in configuration. CONCLUSION: Persistent left lower lobe consolidation. Moreno Rivas MD on June 15, 2017 at 6:09 Board Certified Radiologist. This report was verified electronically.
--- NOTE | 2017-06-15 08:01 | PD.ORT.PN ---
Subjective Subjective Remarks POD #4 Open reduction internal fixation left tibial plateau fracture Pt is laying in bed, admits his pain is well controlled. is at bedside. Admits being discharged to home when cleared medically. Going for bronchoscopy today due to lobe consolidation. Objective Vitals Vital Signs Date Time Temp Pulse Resp B/P (MAP) Pulse Ox O2 Delivery O2 Flow Rate FiO2 06/15/17 04:08 96 Nasal Cannula 3.00 06/15/17 00:00 97.6 95 20 121/62 (81) 96 06/14/17 20:10 98.2 101 19 117/70 (86) 94 06/14/17 16:00 98.8 100 18 136/85 (102) 100 06/14/17 15:11 98 Nasal Cannula 3.00 06/14/17 11:25 97.5 98 18 132/77 (95) 98 06/14/17 09:19 98 Nasal Cannula 3.00 I/O 06/14/17 06/14/17 06/14/17 06/15/17 06/15/17 06/15/17 07:00 15:00 23:00 07:00 15:00 23:00 Intake Total 1440 ml 720 ml Balance 1440 ml 720 ml Intake Oral 1440 ml 720 ml # Voids 5 1 # Bowel Movements 2 0 Result Diagram: 06/14/17 0347 06/14/17 0347 Imaging Last 24 hours Impressions Tibia/Fibula X-Ray 06/11/17 0000 Signed Impressions: Service Date/Time: Sunday, June 11, 2017 12:30 - CONCLUSION: Good alignment of the patient's tibial plateau fracture post plating. Rubén Soto MD Chest X-Ray 06/11/17 0000 Signed Impressions: Service Date/Time: Sunday, June 11, 2017 04:41 - CONCLUSION: No acute cardiopulmonary process except for some minimal left basilar atelectatic changes. Dennys Rosales MD Procedures 06/11/17 Open reduction internal fixation left tibial plateau fracture, Dr Breaux Objective Remarks LLE: Dressing dry and intact. Brace in place. Tender to palpation with mild swelling around incision site. Range of motion not tested. Freely able to move distal digits. No calf pain. Negative Julius's sign. Good cap refill. 2+ pedal pulses. Neurovascular intact. Assessment & Plan Problem List: (1) Tibial plateau fracture, left ICD Codes: S82.142A - Displaced bicondylar fracture of left tibia, initial encounter for closed fracture Qualifiers: Qualified Codes: S82.142A - Displaced bicondylar fracture of left tibia, initial encounter for closed fracture (2) Rib fractures ICD Codes: S22.39XA - Fracture of one rib, unspecified side, initial encounter for closed fracture Status: Acute Qualifiers: Qualified Codes: S22.42XA - Multiple fractures of ribs, left side, initial encounter for closed fracture (3) Hemothorax on left ICD Codes: J94.2 - Hemothorax Status: Acute Assessment and Plan POD #3 Open reduction internal fixation left tibial plateau fracture [facility], toe touch w/b - work with PT to independently transfer/ambulate with walker to restroom. CKS on at all times. Cryotherapy Lovenox for DVT prophylaxis, ok to transition to ASA 81mg BID x 20 days when discharged home. Daily dressing changes Clear for discharge from an orthopedic standpoint with [facility] for RN/PT. F/U Tuesday Leyla Frey Jun 15, 2017 8:01 am
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
[2017-06-15] MEDS: DOCUSATE SODIUM 50 MG/SENNA 8.6 MG TAB PO SCH ×2 (09:00→21:00)
[2017-06-15] MEDS: MAGNESIUM HYDROXIDE SUSP 30 ML CUP PO SCH ×2 (09:00→21:00)
[2017-06-15] MEDS: LACTULOSE SYRUP 20 GM/30 ML CUP PO SCH (09:00)
[2017-06-15] MEDS: BACITRACIN TOP OINT 15 GM TUBE TOPICAL SCH ×2 (09:00→21:00)
[2017-06-15] MEDS: SODIUM CHLORIDE 0.9% FLUSH 10 ML FLUSH IV FLUSH SCH ×2 (09:00→21:00)
[2017-06-15] MEDS: GABAPENTIN 100 MG CAP PO SCH ×3 (09:23→17:54)
[2017-06-15] MEDS: FAMOTIDINE 20 MG TAB PO SCH ×2 (09:23→21:37)
[2017-06-15] MEDS: LIDOCAINE HCL 5% PATCH T-DERMAL SCH (09:24)
[2017-06-15] MEDS: ENOXAPARIN SODIUM 40 MG/0.4 ML SYRINGE SQ SCH (12:00)
[2017-06-15] MEDS ORDERED: MORPHINE SULFATE 4 MG/ML INJ ONE (12:21)
[2017-06-15] MEDS ORDERED: fentaNYL CITRATE 250 MCG/5 ML AMP ONE (12:27)
[2017-06-15] MEDS ORDERED: SUGAMMADEX SODIUM 200 MG/2 ML VIAL IV PUSH ONE (12:54)
[2017-06-15] MEDS ORDERED: DO NOT ADM ANY ANTICOAGULANT DRUGS PRN (13:45)
[2017-06-15] MEDS ORDERED: REMOVE OLD DURAGESIC (FENTANYL) PATCH T-DERMAL SCH (14:00)
[2017-06-15] MEDS: fentaNYL 75 MCG/HR PATCH T-DERMAL SCH (14:08)
[2017-06-15] MEDS ORDERED: PILL SPLITTER OTHER PRN (15:45)
[2017-06-15] MEDS: CYCLOBENZAPRINE HCL 10 MG TAB PO SCH ×2 (15:45→21:37)
[2017-06-16] VITALS (8 sets, daily range): BP systolic 117–156; BP diastolic 76–88; PULSE 92–111; RESP 16–20; TEMP 95–99.1; O2SAT 93–98
[2017-06-16] MEDS: oxyCODONE/ACETAMINOPHEN 5 MG/325 MG TAB PO PRN ×5 (03:22→22:43)
[2017-06-16] MEDS: RESP: ALBUTEROL 2.5 MG/IPRATROPIUM 0.5 MG NEB (SCH) NEB ×2 (04:03→07:41)
[2017-06-16 04:53] LABS: AUTOMATED NEUTROPHIL # 6.1 TH/MM3 (1.8-7.7); BASOPHIL % 0.2 % (0.0-2.0); EOSINOPHIL % 0.6 % (0.0-4.0); HEMATOCRIT 42.6 % (39.0-51.0); LYMPH % 10.2 % (9.0-44.0); LYMPHOCYTE # 0.8 TH/MM3 (1.0-4.8); MEAN CELL VOLUME 88.2 FL (80.0-100.0); MEAN CORPUSCULAR HEMOGLOBIN 29.1 PG (27.0-34.0); MEAN CORPUSCULAR HGB CONC 32.9 % (32.0-36.0); MEAN PLATELET VOLUME 8.7 FL (7.0-11.0); MONO % 8.7 % (0.0-8.0); MONOCYTE # 0.7 TH/MM3 (0-0.9); NEUT % 80.3 % (16.0-70.0); PLATELET COUNT 229 TH/MM3 (150-450); RED BLOOD COUNT 4.83 MIL/MM3 (4.50-5.90); RED CELL DISTRIBUTION WIDTH 14.5 % (11.6-17.2); WHITE BLOOD COUNT 7.6 TH/MM3 (4.0-11.0)
[2017-06-16] MEDS: CYCLOBENZAPRINE HCL 10 MG TAB PO SCH ×3 (06:23→22:40)
[2017-06-16] MEDS: KETOROLAC TROMETHAMINE 30 MG/ML (IVP) VIAL IV PUSH SCH ×3 (06:24→16:20)
--- NOTE | 2017-06-16 07:25 | RADRPT ---
EXAM DATE/TIME: 06/16/2017 06:15 [facility] COMPARISON: CT THORAX W/O CONTRAST, June 13, 2017, 9:14. CHEST SINGLE AP, June 14, 2017, 5:31. CHEST SINGLE A P, June 15, 2017, 5:13. INDICATIONS : Short of breath MEDICAL HISTORY : rib fractures SURGICAL HISTORY : None. ENCOUNTER: Subsequent ACUITY: 1 week PAIN SCORE: 2/10 LOCATION: Bilateral chest FINDINGS: Portable AP view of the chest demonstrates a normal-sized cardiac silhouette. Lungs are underinflated . There is left basilar opacity obscuring the hemidiaphragm. No pneumothorax is visualized. The left rib fractures are not definitively identified on this exam. CONCLUSION: Stable chest x-ray with a left basilar opacity most likely representing airspace consolidation with p ossible persistent small pleural effusion. Blanco Pierre MD on June 16, 2017 at 7:21 Board Certified Radiologist. This report was verified electronically.
[2017-06-16] MEDS: LACTULOSE SYRUP 20 GM/30 ML CUP PO SCH (09:00)
[2017-06-16] MEDS: MAGNESIUM HYDROXIDE SUSP 30 ML CUP PO SCH ×2 (09:00→21:00)
[2017-06-16] MEDS: FAMOTIDINE 20 MG TAB PO SCH ×2 (09:06→21:03)
[2017-06-16] MEDS: GABAPENTIN 100 MG CAP PO SCH ×3 (09:06→16:20)
[2017-06-16] MEDS: DOCUSATE SODIUM 50 MG/SENNA 8.6 MG TAB PO SCH ×2 (09:06→21:00)
[2017-06-16] MEDS: LIDOCAINE HCL 5% PATCH T-DERMAL SCH (09:07)
[2017-06-16] MEDS: SODIUM CHLORIDE 0.9% FLUSH 10 ML FLUSH IV FLUSH SCH ×2 (09:07→21:00)
[2017-06-16] MEDS: BACITRACIN TOP OINT 15 GM TUBE TOPICAL SCH ×2 (09:08→21:00)
[2017-06-16] MEDS: ENOXAPARIN SODIUM 40 MG/0.4 ML SYRINGE SQ SCH (11:20)
[2017-06-16] MEDS: SODIUM CHLORIDE 0.9% FLUSH 10 ML FLUSH IV FLUSH PRN ×2 (11:20→16:21)
--- NOTE | 2017-06-16 12:25 | HHI.FF ---
Face to Face Verification Diagnosis: (1) Rib fractures (2) Tibia fracture (3) Hemothorax on left (4) Tibial plateau fracture, left Physical Therapy Order: Evaluate and Treat, Improve ambulation, Strength and gait training Home Health Nursing Order: Medical education Signs/symptoms of disease process Medication education-adverse effect Nursing assessment with vital signs I have seen patient Akbar Hutchinson on 06/16/17. My clinical findings support the need for the requested home health care services because: Ltd mobility - disease progression Limited ability to care for self High risk of falls Infection w/ risk of complications I certify that my clinical findings support that this patient is homebound because: Post-op weakness Unsteady gait/balance Unsafe to leave home unassisted Boa-[id number]-wivqihay bed/chair Unable to use public transportation Irina Cerda Jun 16, 2017 12:25
--- NOTE | 2017-06-16 12:52 | MR ---
cc: Merissa Orlando MD DATE: 06/15/2017 PREOPERATIVE DIAGNOSIS: Atelectasis of the left lung. POSTOPERATIVE DIAGNOSIS: Atelectasis of the left lung. PROCEDURE PERFORMED: Bronchoscopy and lavage of both lungs, removal of mucus plugs. SURGEON: Nadege Orlando MD ANESTHESIA: General. ESTIMATED BLOOD LOSS: Minimal. DESCRIPTION OF PROCEDURE: The patient prepped and draped in the usual sterile fashion, intubated by Anesthesia and then bronchoscope inserted into the endotracheal tube through it to the bronchial tree. Bifurcation of the trachea was encountered. Bronchoscope was inserted first in the right side and actually large amount of mucus material and debris is obtained from this one. This one is irrigated and the same is repeated on the left side. When everything is clean, bronchoscope was withdrawn and the patient continued the ventilation, tolerated the procedure well. MD JANELL Caldwell/LUANNE , 07:40 PM , 08:08 PM
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
[2017-06-17] VITALS: BP 126/78; PULSE 100; RESP 20; TEMP 97.6; O2SAT 94
[2017-06-17] MEDS: CYCLOBENZAPRINE HCL 10 MG TAB PO SCH ×2 (06:00→15:02)
[2017-06-17] MEDS: oxyCODONE/ACETAMINOPHEN 5 MG/325 MG TAB PO PRN ×2 (06:00→11:52)
[2017-06-17] MEDS: KETOROLAC TROMETHAMINE 30 MG/ML (IVP) VIAL IV PUSH SCH ×3 (06:00→11:51)
--- NOTE | 2017-06-17 07:27 | RADRPT ---
EXAM DATE/TIME: 06/17/2017 06:17 [facility] COMPARISON: CHEST SINGLE AP, June 16, 2017, 6:15. INDICATIONS : Short of breath, follow up pulmonary contusion MEDICAL HISTORY : rib fractures SURGICAL HISTORY : None. ENCOUNTER: Subsequent ACUITY: 1 week PAIN SCORE: 2/10 LOCATION: Bilateral chest FINDINGS: Scattered patchy infiltrate is noted within the left lung. The right lung is clear. The heart is stab le. Multiple left-sided rib fractures are stable. No pneumothorax is noted. CONCLUSION: 1. Scattered patchy infiltrate within the left lung consistent with possible contusions, atelectasis or pneumonia. 2. Multiple left-sided rib fractures are stable. John Burnette MD on June 17, 2017 at 7:24 Board Certified Radiologist. This report was verified electronically.
[2017-06-17 08:00] VITALS: BP 139/86; PULSE 74; RESP 18; TEMP 97.6; O2SAT 95
[2017-06-17] MEDS: BACITRACIN TOP OINT 15 GM TUBE TOPICAL SCH (09:00)
[2017-06-17] MEDS: LACTULOSE SYRUP 20 GM/30 ML CUP PO SCH (09:00)
[2017-06-17] MEDS: DOCUSATE SODIUM 50 MG/SENNA 8.6 MG TAB PO SCH (09:00)
[2017-06-17] MEDS: MAGNESIUM HYDROXIDE SUSP 30 ML CUP PO SCH (09:00)
[2017-06-17] MEDS: FAMOTIDINE 20 MG TAB PO SCH (09:18)
[2017-06-17] MEDS: LIDOCAINE HCL 5% PATCH T-DERMAL SCH (09:18)
[2017-06-17] MEDS: GABAPENTIN 100 MG CAP PO SCH ×2 (09:18→11:50)
[2017-06-17] MEDS: SODIUM CHLORIDE 0.9% FLUSH 10 ML FLUSH IV FLUSH SCH (09:19)
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
[2017-06-17] MEDS: ENOXAPARIN SODIUM 40 MG/0.4 ML SYRINGE SQ SCH (11:50)
[2017-06-17 12:00] VITALS: BP 149/93; PULSE 102; RESP 18; TEMP 97.4; O2SAT 92
== END 2017-06-17 15:31 | disposition home health service (06) | DRG 492 ==
LOC: NEPC 12:43 → NEDA 16:00 → N06A 18:41
PROVIDERS: ADMIT Surgery Trauma Surgery; ATTEND Surgery Trauma Surgery
PROC: 0QSH04Z Reposition Left Tibia with Internal Fixation Device, Open Approach (ICD-10-PCS; principal; 2017-06-11 10:44)
PROC: 0BC78ZZ Extirpation of Matter from Left Main Bronchus, Via Natural or Artificial Opening Endoscopic (ICD-10-PCS; 2017-06-15)
PROC: 0BC38ZZ Extirpation of Matter from Right Main Bronchus, Via Natural or Artificial Opening Endoscopic (ICD-10-PCS; 2017-06-15)
DX: S82.142A Displaced bicondylar fracture of left tibia, initial encounter for closed fracture (principal); S27.1XXA Traumatic hemothorax, initial encounter; S27.321A Contusion of lung, unilateral, initial encounter; S22.42XA Multiple fractures of ribs, left side, initial encounter for closed fracture; J98.11 Atelectasis; V23.4XXA Motorcycle driver injured in collision with car, pick-up truck or van in traffic accident, initial encounter; Y92.410 Unspecified street and highway as the place of occurrence of the external cause
CPT/HCPCS: 31622; 70450; 70486; 71045; 71250; 71260; 72125; 72128; 72131; 72170; 73552; 73590; 73700; 74177; 76000; 80048; 80053; 85025; 85610; 85730; 86850; 86900; 86901; 93005; 94150; 94640; 94664; 94667; 94668; 96361; 96374; 96375; C1713; J0131; J0690; J1100; J1170; J1580; J1650; J1885; J2270; J2370; J2405; J2710; J3010; J7030; J7120; J7613; L1830; Q9967

== ENCOUNTER 2017-07-19 05:33 | Inpatient (IN) | payer OTHER ==
[~2017-07-19] VITALS: Ht 180.3 cm; Wt 121.3 kg
[~2017-07-19 05:33] MED LIST changes: -LORTA5 PO; +MAGN30S PO; +PERC7.5T13 PO; +RANI300T PO; -VIBR100C PO; +VORT1TAB2 PO
[2017-07-19] MEDS ORDERED: SODIUM CHLORID 0.9% 500 ML IV PRN ×2 (06:15→11:45)
[2017-07-19] MEDS ORDERED: POVIDONE IODINE 5% (ANTISEPSIS KIT) 4 APPLICATIONS EACH NARE PRN ×2 (06:15→11:45)
[2017-07-19] MEDS ORDERED: LACTATED RINGER'S 1000 ML IV PRN ×2 (06:15→11:45)
[2017-07-19] MEDS ORDERED: CHLORHEXIDINE GLUCONATE 2 % 1 PACK (2 CLOTHS) TOPICAL PRN ×2 (06:15→11:45)
[2017-07-19] MEDS ORDERED: METOPROLOL TARTRATE 25 MG TAB PO PRN ×2 (06:15→11:45)
[2017-07-19] MEDS ORDERED: CHLORHEXIDINE GLUCONATE 4% SOLN 120 ML BTL TOPICAL SCH (06:30)
[2017-07-19] MEDS ORDERED: ceFAZolin 2 GM PREMIX 50 ML IV SCH (06:30)
[2017-07-19] MEDS ORDERED: VANCOMYCIN 1 GM/200 ML INJ 200 ML IV SCH (06:30)
[2017-07-19] MEDS ORDERED: FAMOTIDINE 20 MG/2 ML VIAL ONE (07:41)
[2017-07-19] MEDS ORDERED: ACETAMINOPHEN 1000 MG/100 ML 100 ML IV ONE (07:41)
[2017-07-19] MEDS ORDERED: GENTAMICIN SULFATE 80 MG/2 ML VIAL ONE (08:15)
[2017-07-19] MEDS ORDERED: ceFAZolin INJ 1,000 MG VIAL ONE (08:39)
[2017-07-19] MEDS ORDERED: VANCOMYCIN HCL 1000 MG VIAL ONE (10:41)
--- NOTE | 2017-07-19 11:10 | PD.OP ---
cc: Ethan Shane MD Operative Report Date of Surgery: Jul 19, 2017 Preoperative Diagnosis: Displaced left tibial plateau fracture Postoperative Diagnosis: Procedure: Removal of deep hardware, revision open reduction to fixation left tibial plateau Anesthesia: General Surgeon: Ethan Shane Mapping Engineer(s): ILANA Garrison PA-C The surgical procedure was assisted by my physician technical staff assistant. My P.A. presence was necessary throughout this case for the manipulation and positioning of the surgical extremity. My P.A. was assisting me throughout the duration of this procedure. The skill set of a physician technical staff assistant was medically necessary to complete this procedure. During the surgical case the surgical technician was working at the back table and the physician technical staff assistant was directly assisting me. Operation and Findings: Implants used: Synthes Plan of activity: Nonweightbearing, no quad sets, passive range of motion left knee This patient was seen and evaluated preoperatively. Patient sustained an injury resulting a tibial plateau fracture. He was initially treated with open reduction internal fixation approximately 6 weeks ago. Patient developed displacement of the articular surface with mild angular deformity of the knee. I had a detailed discussion of the risk and benefits of surgery with patient preoperatively. Informed consent was obtained preoperatively after detailed discussion of the risks and benefits of surgery. Risk of surgery including bleeding, infection, nonunion, painful hardware, stiffness, loss of motion, arthritis, need for knee replacement, as well as medical complications including blood clots, stroke, heart attack, and were discussed. I also discussed the possibility of using allograft bone graft . Preoperatively the operative site was marked. Patient was brought to the operating room and placed on the operating room table. Intravenous sedation and general endotracheal anesthesia were administered. IV antibiotics were given and a time out procedure was preformed. The operative leg was prepped with alcohol followed by Hibiclens and draped in the usual sterile fashion. Procedure began with a 6-inch curvilinear incision over the anterolateral knee through the previous incision scar. Subcutaneous tissue was treated with Bovie. Iliotibial band was split in line with fibers. A sub-meniscal arthrotomy was created and the lateral articular surface was visualized. There was comminution and depression of the articular surface. The large lateral fragment was hinged open so that the articular surface could be visualized. There was significant fracture callus formation present. Osteotomes were used to mobilize fracture fragments. At this point the articular surface was well visualized. The central and posterior articular surface fragments were mobilized and elevated. The reduction of the articular surface was difficult secondary to the healing that had occurred already. Articular surface reduced into excellent alignment. K-wires were used for provisional fixation. The cortical fragments were now reduced. Periarticular clamps were used to compress the medial and lateral plateau fragments together. Fluoroscopy revealed excellent alignment of fracture. A proximal tibial plate was selected. The plate was provisionally held with K-wires. 3.5 cortical screws were used compress plate to bone distally, and a periarticular clamp was used to compress the medial and lateral tibial plateau fracture fragments together. At this point bone graft was packed in to the fracture underneath the articular surface. An additional 5 cc of Ceramet calcium phosphate cement was mixed and injected underneath the articular surface for additional support. Multiple locking screws were now placed proximally. Additional screws were placed in the shaft. K-wires were removed. Final fluoroscopy showed excellent alignment of fracture with well-placed hardware. The incision was thoroughly irrigated. Arthrotomy and iliotibial band closed with #1 Vicryl,. Subcutaneous tissues closed with 3-0 Vicryl and skin was closed with janeth. Sterile dressings were applied. The patient was transferred to recovery in stable condition. Ethan Shane MD Jul 19, 2017 11:09
[2017-07-19] MEDS ORDERED: diphenhydrAMINE HCL 25 MG CAP PO PRN (11:15)
[2017-07-19] MEDS ORDERED: NALOXONE HCL 0.4 MG/ML AMP IV PUSH PRN (11:15)
[2017-07-19] MEDS ORDERED: Post-op Orders (for Pharmacy) XX ONE (11:20)
[2017-07-19] MEDS ORDERED: MIDAZOLAM HCL 2 MG/2 ML VIAL ONE (11:26)
[2017-07-19] MEDS: LACTATED RINGER'S 1000 ML INJ 1,000 ML IV SCH ×2 (11:40→23:57)
[2017-07-19] MEDS ORDERED: DEXAMETHASONE SOD PHOS 4 MG/ML VIAL IV ONE (12:00)
[2017-07-19] MEDS ORDERED: LACTATED RINGER'S 1000 ML INJ 1,000 ML IV ONE (12:00)
[2017-07-19] MEDS ORDERED: PROPOFOL 200 MG/20 ML AMP IV ONE (12:00)
[2017-07-19] MEDS ORDERED: LIDOCAINE HCL 1% PF 5 ML SYRINGE OTHER ONE (12:00)
[2017-07-19] MEDS ORDERED: PHENYLEPH/NS 1000 MCG/10 ML SYR IV ONE (12:00)
[2017-07-19] MEDS ORDERED: ONDANSETRON HCL 4 MG/2 ML VIAL IV ONE (12:00)
[2017-07-19] MEDS ORDERED: ESMOLOL HCL 100 MG/10 ML VIAL IV ONE (12:00)
[2017-07-19] MEDS ORDERED: SUCCINYLCHOLINE CHLORIDE 100 MG/5 ML SYRINGE IV PUSH ONE (12:00)
[2017-07-19] MEDS ORDERED: *MEPERIDINE 25 MG INJ VIAL PERIprocedural Use ONLY ONE (12:14)
[2017-07-19] MEDS ORDERED: *morphine SULFATE 8 MG/ML PERIprocedure ONLY ONE (12:50)
[2017-07-19] MEDS ORDERED: ERGOCALCIFEROL (VIT D2) 50,000 UNIT CAP PO SCH (13:00)
[2017-07-19] MEDS: MORPHINE SULFATE 4 MG/ML INJ IV PUSH PRN ×2 (14:56→19:10)
[2017-07-19] MEDS: ONDANSETRON HCL 4 MG/2 ML VIAL IVP PRN ×2 (14:56→19:10)
[2017-07-19] MEDS: CALCIUM/VITAMIN D 250 MG/125 U TAB PO SCH ×2 (15:03→17:59)
--- NOTE | 2017-07-19 15:51 | RADRPT ---
EXAM DATE/TIME: 07/19/2017 10:38 [facility] COMPARISON: No previous studies available for comparison. INDICATIONS : Revision of left tibial plateau ORIF. MEDICAL HISTORY : Unobtainable. SURGICAL HISTORY : ORIF left tibial plateau. ENCOUNTER: [facility] ACUITY: 1 month PAIN SCORE: Non-responsive. LOCATION: Left knee. FINDINGS: 3 intraoperative spot images of the left knee. Proximal tibia fracture with lateral internal fixation plate and multiple transfixing screws. Alignment near anatomic. CONCLUSION: Intraoperative spot images showing internal fixation hardware across proximal tibia fracture. Barry Parker MD on July 19, 2017 at 15:48 Board Certified Radiologist. This report was verified electronically.
[2017-07-19 16:00] VITALS: BP 139/87; PULSE 104; RESP 20; TEMP 97.7; O2SAT 98
[2017-07-19] MEDS: ACETAMINOPHEN/HYDROcodone 325 MG/10 MG TAB PO PRN ×3 (17:59→23:55)
[2017-07-19] MEDS: ceFAZolin 2 GM PREMIX 50 ML IV SCH (18:00)
[2017-07-19 20:00] VITALS: BP 141/85; PULSE 111; RESP 20; TEMP 98.3; O2SAT 97
[2017-07-19] MEDS: FAMOTIDINE 20 MG TAB PO SCH (20:36)
[2017-07-19] MEDS: DOCUSATE SODIUM 50 MG/SENNA 8.6 MG TAB PO SCH (20:36)
[2017-07-19] MEDS: VANCOMYCIN INJ 1,000 MG in SODIUM CHLOR 0.9% 250 ML INJ 250 ML IV SCH (20:36)
[2017-07-19] MEDS ORDERED: VORTIOXETINE 10 MG PO SCH (21:00)
[2017-07-20] VITALS: BP 134/62; PULSE 105; RESP 20; TEMP 98.1; O2SAT 97
[2017-07-20] MEDS: ceFAZolin 2 GM PREMIX 50 ML IV SCH ×2 (01:08→10:10)
[2017-07-20] MEDS: ACETAMINOPHEN/HYDROcodone 325 MG/10 MG TAB PO PRN ×2 (03:17→06:17)
[2017-07-20 04:00] VITALS: BP 140/81; PULSE 100; RESP 20; TEMP 98.2; O2SAT 98
--- NOTE | 2017-07-20 07:06 | PD.ORT.PN ---
Subjective Subjective Remarks POD 1 s/p revision ORIF of left tibial plateau doing well. was on percocet 7.5 prior to arrival at hospital and states that norco is not controlling pain. Objective Vitals Vital Signs Date Time Temp Pulse Resp B/P (MAP) Pulse Ox O2 Delivery O2 Flow Rate FiO2 07/20/17 04:00 98.2 100 20 140/81 (100) 98 07/20/17 00:00 98.1 105 20 134/62 (86) 97 07/19/17 20:00 98.3 111 20 141/85 (103) 97 07/19/17 16:00 97.7 104 20 139/87 (104) 98 07/19/17 14:00 99.0 104 16 135/76 (95) 100 Nasal Cannula 2 07/19/17 13:30 105 15 136/81 (99) 100 Nasal Cannula 2 07/19/17 13:00 112 18 136/82 (100) 100 Nasal Cannula 2 07/19/17 12:30 109 22 131/76 (94) 99 Nasal Cannula 3 07/19/17 12:15 110 23 145/81 (102) 99 Nasal Cannula 3 07/19/17 12:00 105 22 142/81 (101) 100 Simple Mask 6 07/19/17 11:45 105 18 143/82 (102) 100 Simple Mask 6 07/19/17 11:30 100 20 126/76 (93) 100 Simple Mask 6 07/19/17 11:21 97.3 88 18 112/69 (83) 95 Simple Mask 6 I/O 07/19/17 07/19/17 07/19/17 07/20/17 07/20/17 07/20/17 07:00 15:00 23:00 07:00 15:00 23:00 Intake Total 1400 ml 300 ml 1503 ml Output Total 650 ml 1400 ml Balance 750 ml 300 ml 103 ml Intake Oral 480 ml IV Total 200 ml 300 ml 1023 ml Other 1200 ml Output Urine Total 350 ml 1400 ml Estimated Blood Loss 300 ml Objective Remarks LLE; dressings clean and dry. intact. NVI. +knee brace Assessment & Plan Assessment and Plan 1) Left Tibial Plateau Fx s/p revision ORIF - POD 1 -NWB -no quad sets, leg lifts, AROM, strengthening -knee brace except for PROM -change norco 10 to percocet 7.5 -plan for DC home today -f/u with De Leon or PA in 2 weeks Valentin Osorio PA/Top Installer PA Jul 20, 2017 07:06
[2017-07-20 07:09] LABS: HEMOGLOBIN 14.8 GM/DL (13.0-17.0)
[2017-07-20] MEDS ORDERED: PERC7.5T13 PO (07:09)
[2017-07-20] MEDS ORDERED: XARE10TA PO (07:09)
--- NOTE | 2017-07-20 07:10 | HHI.FF ---
Face to Face Verification Diagnosis: (1) Tibial plateau fracture, left Physical Therapy Gait training Knee: Knee fracture, Protocol: Left, Non weight bearing Canvas Knee Splint: Remove only with PT Left LE Weight Bearing: Non WB, No Strengthening, No Quad Sets Left LE Range of Motion: Passive ROM (0-90deg) I have seen patient Akbar Hutchinson on 07/20/17. My clinical findings support the need for the requested home health care services because: Ltd mobility - disease progression I certify that my clinical findings support that this patient is homebound because: Post-op weakness Valentin Osorio/First Brielle HILLIARD Jul 20, 2017 07:10
[2017-07-20 07:52] VITALS: BP 123/73; PULSE 100; RESP 18; TEMP 98.5; O2SAT 96
[2017-07-20] MEDS: oxyCODONE/ACETAMINOPHEN 7.5 MG/325 MG TAB PO PRN ×2 (08:40→12:44)
[2017-07-20] MEDS: FAMOTIDINE 20 MG TAB PO SCH (08:51)
[2017-07-20] MEDS: VANCOMYCIN INJ 1,000 MG in SODIUM CHLOR 0.9% 250 ML INJ 250 ML IV SCH (08:51)
[2017-07-20] MEDS: DOCUSATE SODIUM 50 MG/SENNA 8.6 MG TAB PO SCH (08:51)
[2017-07-20] MEDS: CALCIUM/VITAMIN D 250 MG/125 U TAB PO SCH ×2 (08:52→12:44)
[2017-07-20] MEDS ORDERED: CHOLECALCIFEROL (VIT D3) 1000 UNIT TAB PO SCH (09:00)
--- NOTE | 2017-07-20 09:35 | HHI.DS ---
Discharge Summary Admission Date Jul 19, 2017 at 05:33 Discharge Date: Jul 20, 2017 Admitting Diagnosis Malunion of left tibial plateau fracture Diagnosis: (1) Tibial plateau fracture, left Diagnosis: Principal ICD Codes: S82.142A - Displaced bicondylar fracture of left tibia, initial encounter for closed fracture Status: Acute Procedures Removal of hardware with revision of left tibial plateau fracture and application of cement spacer CBC/BMP: 07/20/17 0622 Significant Findings Laboratory Tests Test 07/19/17 12:40 07/20/17 06:22 PE at Discharge LLE; dressings clean and dry. intact. NVI. +knee brace Hospital Course Patient admitted for outpatient basis for revision of left tibial plateau fracture. He previously undergone surgical fixation approximately [address] Breaux. However, the fracture pieces have shifted over time and he developed a malunion. He underwent procedure and tolerated it well. He was admitted to [facility] following the procedure. By postop day 1 he was hemodynamically stable, pain well controlled, out of bed with a walker and fit for discharge home with home health care. He will be discharged with Percocet 7.5/325. He also uses Xarelto 10 mg p.o. daily for 14 days to prevent any deep vein thrombosis formation. He will remain strictly nonweightbearing avoid any quad sets or leg lifts. He will work on passive range of motion of the knee and have daily dressing changes. He will follow-up with Dr. De Leon or his PA in 2 weeks Pt Condition on Discharge: Good Discharge Disposition: Disch w/ Home Health Serv Discharge Instructions Diet Instructions: As Tolerated, No Restrictions Activities You Can Perform: Non Weight Bearing Follow up Referrals: Orthopedics - 2 Weeks @ [facility] with Ethan De Leon MD New Medications: Rivaroxaban (Xarelto) 10 Mg Tab 10 MG PO DAILY for Blood Clot Prevention, #14 TAB 0 Refills Changed Medications: Oxycodone-Acetaminophen (Percocet) 7.5-325 mg Tab 1 TAB PO Q4HR PRN for PAIN for 7 Days, #40 TAB 0 Refills (Changed from: Q6H) Valentin Osorio PA/Distributor Sales Consultant PA Jul 20, 2017 09:35
[2017-07-20] MEDS ORDERED: ENOXAPARIN SODIUM 40 MG/0.4 ML SYRINGE SQ SCH (10:00)
[2017-07-20 11:31] VITALS: BP 135/93; PULSE 107; RESP 18; TEMP 98; O2SAT 95
== END 2017-07-20 13:36 | disposition home health service (06) | DRG 494 ==
LOC: HSDI 05:33 → N06B 14:33
PROVIDERS: ADMIT Orthopaedic Surgery Orthopaedic Trauma; ATTEND Orthopaedic Surgery Orthopaedic Trauma
PROC: 0QPH04Z Removal of Internal Fixation Device from Left Tibia, Open Approach (ICD-10-PCS; 2017-07-19)
PROC: 0SUD0KZ Supplement Left Knee Joint with Nonautologous Tissue Substitute, Open Approach (ICD-10-PCS; 2017-07-19)
PROC: 0QSH04Z Reposition Left Tibia with Internal Fixation Device, Open Approach (ICD-10-PCS; principal; 2017-07-19 08:29)
DX: S82.142P Displaced bicondylar fracture of left tibia, subsequent encounter for closed fracture with malunion (principal); I10 Essential (primary) hypertension; G47.30 Sleep apnea, unspecified; K21.9 Gastro-esophageal reflux disease without esophagitis; E66.9 Obesity, unspecified; F32.9 Major depressive disorder, single episode, unspecified; Z79.01 Long term (current) use of anticoagulants; Z68.37 Body mass index [BMI] 37.0-37.9, adult; V49.9XXD Car occupant (driver) (passenger) injured in unspecified traffic accident, subsequent encounter
CPT/HCPCS: 73560; 76000; 82652; 85014; 85018; 94150; C1713; J0131; J0330; J0690; J1100; J1580; J1650; J2175; J2250; J2270; J2370; J2405; J3010; J3370; J7050; J7120; L1830